=== PATIENT | male | born 1990 | race Caucasian/White ===

== ENCOUNTER 2021-05-10 08:37 | Emergency (ER) | payer OTHER, SELFPAY ==
[2021-05-10 08:43] VITALS: BP 134/85; PULSE 72; RESP 17; TEMP 36.7; O2SAT 99; BMI 31.2
--- NOTE | 2021-05-10 09:16 | ED.VIS.BACK ---
HPI History of Present Illness Chief Complaint: Back Narrative Narrative: 30-year-old male presenting with back pain. He states that last night he was walking and stepped in a hole or something and tried to catch himself from falling and he felt a twinge in the back on the right. He states he did not hit significantly then. Overnight he had some tightening it radiates down his gluteal region. He denies loss of bladder bowel control. He denies saddle anesthesia. He denies any direct trauma. He is able to ambulate but states his back feels tight. He has no history of back problems. PFSH PFS Medical History no medical history Home Medications prednisone 50 mg PO DAILY 4 Days #20 tab 05/10/21 [Rx Last Taken Unknown] tizanidine [Zanaflex] 4 mg PO Q8H PRN #14 cap 05/10/21 [Rx Last Taken Unknown] Allergy/AdvReac Type Severity Reaction Status Date / Time No Known Allergies Allergy Verified 05/10/21 08:39 Surgical History no surgical history Social History Smoking Status: Current every day smoker tobacco type: cigarettes ROS ROS ED Constitutional Constitutional ED: Denies chills or fever(s) Eyes Eyes: Denies blurry vision or diplopia ENT ENT ED: Denies rhinorrhea or sore throat Cardiovascular Cardiovascular: Denies chest pain or palpitations Respiratory/Chest Respiratory/Chest: Denies dyspnea or sputum Gastrointestinal Gastrointestinal: Denies abdominal pain, nausea or vomiting Genitourinary Genitourinary ED: Denies dysuria or hematuria Musculoskeletal Musculoskeletal: Reports back pain Integumentary Denies abscess or rash Neurologic Neurologic: Denies headache(s), paresthesias or weakness Psychiatric Psychiatric: Denies anxiety or depression EXAM Physical Exam Const Vital Signs: 05/10/21 08:43 Temperature 98.1 F Temperature Source Temporal Pulse Rate 72 Respiratory Rate 17 Blood Pressure 134/85 H Blood Pressure Mean 101 Pulse Ox 99 Oxygen Delivery Method Room Air Positive well nourished General Appearance ED: NAD; Negative for pallor HEENT Reports moist mucous membranes Negative for trauma Eyes PERRL and EOMs intact bilaterally Resp normal respiratory effort and clear to auscultation bilaterally Cardio regular rate and regular rhythm Back/Spine Back/Spine Narrative: Tenderness palpation right lumbar paraspinal musculature. No midline spinal tenderness, deformity, step-off. Neuro oriented x3 Sensorium / Orientation: alert Psych mental status grossly normal Skin General Skin Exam: Negative for jaundice or pallor MDM MDM MDM Narrative Medical decision making narrative: Patient presenting with lumbar strain. Given prednisone and Norflex in the ED. He was given a prescription for prednisone and Zanaflex. He is given instructions on stretching, icing. He is given return precautions. Impression: 1. Lumbar strain Discharge Plan Triage Chief Complaint: Back ED Provider: Jaden Lassiter Dx/Rx/DC Orders Instructions: ED Back Spasm, No Trauma Prescriptions: New prednisone 10 mg tablet 50 mg PO DAILY 4 Days Qty: 20 RF: 0 tizanidine [Zanaflex] 4 mg capsule 4 mg PO Q8H PRN (Reason: muscle spasticity) Qty: 14 RF: 0 Primary Care Provider: Lucy Joseph Referrals: Nicole Trevino MD [STAFF PHYSICIAN] - As Needed Town Doctor,Out of [NON-STAFF] - Disposition Disposition: Home, Self Care
[2021-05-10] MEDS: predniSONE 20 MG Tablet 60 MG PO (09:20)
[2021-05-10] MEDS: Orphenadrine 100 MG Tablet PO (09:21)
== END 2021-05-10 09:25 | disposition home or self-care (01) ==
LOC: ED 09:15
PROVIDERS: Emergency Provider Student in an Organized Health Care Education/Training Program; Visit Provider Student in an Organized Health Care Education/Training Program
DX: S39.012A Strain of muscle, fascia and tendon of lower back, initial encounter (principal); F17.210 Nicotine dependence, cigarettes, uncomplicated; X50.1XXA Overexertion from prolonged static or awkward postures, initial encounter
CPT/HCPCS: 99283

== ENCOUNTER 2024-03-06 04:37 | Emergency (ER) | payer BC, SELFPAY ==
[2024-03-06 04:41] VITALS: BP 135/80; PULSE 88; RESP 16; TEMP 36.6; O2SAT 100; BMI 30.4
--- NOTE | 2024-03-06 05:26 | EKG12_ITS ---
Test Reason : DYSRHYTHMIA Blood Pressure : */* mmHG Vent. Rate : 82 BPM Atrial Rate : 82 BPM P-R Int : 146 ms QRS Dur : 84 ms QT Int : 338 ms P-R-T Axes : 32 -1 36 degrees QTcB Int : 394 ms Normal sinus rhythm Normal ECG Confirmed by FERNANDO BAUTISTA, OMKAR ([id number]), health editor DARRYL CHAVEZ ([id number]) on 03/07/2024 10:52:45 AM Referred By: Confirmed By: OMKAR KING MD
--- NOTE | 2024-03-06 05:50 | RAD_ITS ---
INDICATION: cough EXAMINATION/TECHNIQUE: X-RAY - XR Chest 2 Views COMPARISON: No relevant prior comparison study available FINDINGS: LINES/DEVICES: None. LUNGS: No consolidation. No pneumothorax. MEDIASTINUM: Unremarkable. CARDIAC SILHOUETTE: Not enlarged. BONES AND SOFT TISSUES: No acute abnormalities. RAD/Chest PA and Lateral IMPRESSION: No evidence of active intrathoracic disease. Electronically Signed: Violeta Valdez MD at 6:57 EST ,
[2024-03-06 06:02] VITALS: BP 122/78; BP 132/69; BP 132/83; PULSE 106; PULSE 81; PULSE 91
[2024-03-06 06:08] LABS: Absolute Lymphocyte Count 1.14 X10^3/uL (0.83-4.51); Absolute Neutrophil Count 9.1 X10^3/uL (2.0-7.7); Basophil# 0.05 X10^3/uL; Basophil% 0.4 % (0-1); Eosinophil# 0.22 X10^3/uL; Eosinophils% 1.8 % (0-5); Hematocrit 45.8 % (40-54); Hemoglobin 15.5 g/dL (13.0-16.5); Lymphocyte # 1.14 X10^3/ul (0.83-4.51); Lymphocyte % 9.3 % (19-41); Mean Corp Hgb Conc 33.8 g/dL (32-36); Mean Corpuscular Volume 85.6 fL (80-94); Mean Platelet Vol. 9.8 fl (6.2-12.0); Monocyte% 13.1 % (0-10); NRBC Flagged by Analyzer 0 % (0-5); Neutrophil # 9.14 X10^3/uL (2.7-7.7); Neutrophil % 74.9 % (47-70); POSITIVE DIFFERENTIAL YES; Platelet Count 234 K/mm3 (150-450); RBC Distribution Width CV 12.4 % (11.6-14.6); RBC Distribution Width SD 38.7 fl (35.1-43.9); Red Blood Count 5.35 M/mm3 (4.6-6.2); White Blood Count 12.2 K/mm3 (4.4-11.0)
[2024-03-06] MEDS: 0.9% Normal Saline (1000mL) 1,000 ML 999 ML IV (06:10)
[2024-03-06 06:15] LABS: Differential Indicated SCAN CRITERIA MET
[2024-03-06 06:31] LABS: Anion Gap 2 (5-15); BUN 13 mg/dL (7-18); Calcium,Total 8.8 mg/dL (8.5-10.1); Chloride 105 mmol/L (98-107); EST Glomerular Filtration Rate 91 mL/min (>60); Est Glom Filt Rate - Afr Amer 110 mL/min (>60); Estimated Creatinine Clearance 114.92 ml/min; Glucose 106 mg/dL (74-106); Potassium 3.7 mmol/L (3.5-5.1); Sodium Level 137 mmol/L (136-145)
[2024-03-06 06:38] VITALS: BP 128/73; PULSE 79; RESP 16; TEMP 36.6; O2SAT 100
--- NOTE | 2024-03-06 07:10 | EX.ED.DYSGE1 ---
HPI History of Present Illness Chief Complaint: Syncope Informant: patient and spouse/S.O. Narrative Narrative: Patient is a 33-year-old male with no significant past medical history. He states his entire household has been sick with congestion cough and drain. He states that this evening his child was coughing and he woke up. He states he was walking to the kitchen when he began to feel lightheaded and then had a syncopal event. He struck his head as he fell to the ground. He denies any history of bleeding disorder or blood thinner use. He states that he does not remember feeling palpitations or heart racing prior to the event. He states that he has not passed out in the past but with his recent illness and now the syncopal event this evening he presents for evaluation [facility] Medical History no medical history no medical history Home Medications ?Medication ?Instructions ?Recorded ?Last Taken ?Type azelastine 137 mcg (0.1 %) nasal 2 spray intranasal BID #30 mL 03/06/24 Unknown Rx spray dextroamphetamine-amphetamine ER 1 cap PO DAILY 03/06/24 Unknown History 20 mg 24hr capsule,extend release prednisone 20 mg tablet 40 mg (2 x 20 mg) PO DAILY 5 days 03/06/24 Unknown Rx #10 tabs Allergy/AdvReac Type Severity Reaction Status Date / Time No Known Allergies Allergy Verified 05/10/21 08:39 Surgical History no surgical history Social History Smoking Status: Current every day smoker tobacco type: cigarettes ROS ROS ED Constitutional Constitutional ED: Denies chills or fever(s) Eyes Eyes: Denies blurry vision or change in vision ENT ENT ED: Reports rhinorrhea and sore throat Cardiovascular Cardiovascular: Reports other Details: Positive syncope ; Denies chest pain, palpitations or racing heartbeat Respiratory/Chest Respiratory/Chest: Reports cough; Denies dyspnea Gastrointestinal Gastrointestinal: Denies abdominal pain, diarrhea, nausea or vomiting Genitourinary Genitourinary ED: Denies dysuria Musculoskeletal Musculoskeletal: Reports myalgias Integumentary Reports Abrasions and other Details: Positive abrasion to the forehead Neurologic Neurologic: Denies headache(s), paresthesias or weakness Hematologic/Lymphatic Hematologic/Lymphatic: Denies easy bleeding or easy bruising Allergic/Immunologic Allergic/Immunologic ED: Denies mouth swelling or tongue swelling EXAM Physical Exam Const Vital Signs: 03/06/24 04:41 03/06/24 04:44 03/06/24 06:02 Temperature 98 F Temperature Source Oral Pulse Rate 88 Pulse Rate [Lying] 81 Pulse Rate [Sitting (for 1 minute prior to obtaining)] 91 Pulse Rate [Standing (for 1 minute prior to obtaining)] 106 H Respiratory Rate 16 Respiratory Effort Normal Respiratory Pattern Normal Blood Pressure 135/80 H Blood Pressure [Lying] 132/69 H Blood Pressure [Sitting (for 1 minute prior to obtaining)] 132/83 H Blood Pressure [Standing (for 1 minute prior to obtaining)] 122/78 H Blood Pressure Mean 98 Blood Pressure Mean [Lying] 90 Blood Pressure Mean [Sitting (for 1 minute prior to obtaining)] 99 Blood Pressure Mean [Standing (for 1 minute prior to obtaining)] 92 Pulse Ox 100 Oxygen Delivery Method Room Air Positive well nourished and well developed General Appearance ED: well developed; Negative for pallor HEENT HEENT Narrative: Patient has a 1 x 2 cm hematoma along the right frontal portion of the forehead. There is a dermal layer abrasion in the center of this consistent with head injury. Otherwise no signs of depressed or basilar skull fracture Nasal mucosa is hyperemic and boggy with large inferior nasal turbinate Posterior pharynx displays cobblestoning consistent with sinus drainage without secondary findings to suggest infection or airway edema or compromise Mucous membranes are mildly dry and tacky Eyes PERRL and EOMs intact bilaterally General Eye ED: Negative for scleral icterus Neck supple Neck Narrative: No bony deformity or step-off of the cervical spine no midline tenderness to palpation Resp normal respiratory effort and clear to auscultation bilaterally Cardio regular rate and regular rhythm GI normal to inspection, nondistended, normoactive bowel sounds, non-tender, non-distended and no masses Auscultation: normoactive bowel sounds Palpation: soft Back/Spine Back/Spine Narrative: No bony deformity or step-off of the thoracic or lumbar spine no midline tenderness to palpation Extremity normal to inspection Neuro oriented x3, CN's II-XII intact bilaterally and no sensory deficits noted Neuro Narrative: Cranial nerves II through XII are grossly intact there are no focal neurologic deficits No pronator drift no dysmetria no truncal ataxia NIH stroke scale score of 0 GCS of 15 Sensorium / Orientation: alert Motor Exam: strength 5/5 throughout Psych mental status grossly normal Skin no rashes or lesions noted and No skin turgor normal Skin Narrative: Skin turgor is slightly increased General Skin Exam: Negative for jaundice or pallor MDM MDM MDM Narrative Medical decision making narrative: Patient presented to the ER awake and alert with stable vitals and normal neurologic exam. History is most consistent with upper respiratory tract infection leading to mild dehydration and orthostatic syncope. We discussed potential head CT as he did strike his head and had a syncopal event. However based on his young age and the fact he hit the frontal bone and he does not have a history of bleeding disorder nor take blood thinners concern for underlying traumatic subarachnoid or subdural hemorrhage is low and we do not feel the need for head CT. Also as patient does not have midline pain on palpation and can move his neck in all directions concern for cervical compression fracture is low and therefore patient did not want to undergo a CT of the neck. With the syncopal event there is concern this could be related to acute kidney injury versus electrolyte abnormality or cardiac dysrhythmia. Basic blood work was obtained and reveals no acute finding. EKG revealed sinus rhythm going against ACS or cardiac dysrhythmia. Orthostatic vitals were technically negative but patient did report feeling lightheaded with standing and therefore he was given a liter of fluid. Following this he had resolution of his lightheaded/dizzy sensation. Therefore this time as overall workup is negative and patient is feeling better after hydration he is otherwise safe for discharge History & Record Review Discussion w/independent historian: EMS personnel, Patient and Significant other Lab Data Attestation: I reviewed the patient's lab results. Labs: Laboratory Results - last 24 hr 03/06/24 05:44 WBC 12.2 H RBC 5.35 Hgb 15.5 Hct 45.8 MCV 85.6 MCH 29.0 MCHC 33.8 RDW Std Deviation 38.7 RDW Coeff of Olya 12.4 Plt Count 234 MPV 9.8 Immature Gran % (Auto) 0.500 Neut % (Auto) 74.9 H Lymph % (Auto) 9.3 L [place] % (Auto) 13.1 H Eos % (Auto) 1.8 Baso % (Auto) 0.4 Absolute Neuts (auto) 9.1 H Absolute Lymphs (auto) 1.14 Nucleated RBC % 0 Sodium 137 Potassium 3.7 Chloride 105 Carbon Dioxide 30.0 Anion Gap 2 L BUN 13 Creatinine 1.00 Estim Creat Clear Calc 114.92 Est GFR (MDRD) Af Amer 110 Est GFR (MDRD) Non-Af 91 BUN/Creatinine Ratio 13.0 Glucose 106 Calcium 8.8 Magnesium 2.0 Radiography Diagnostic Testing: Clinical Impression(s) from Imaging Studies Chest X-Ray 03/06/24 05:50 IMPRESSION: No evidence of active intrathoracic disease. Electronically Signed: Violeta Valdez MD at 6:57 EST , Chest x-ray as interpreted by the emergency medicine physician reveals no acute infiltrate pneumothorax or pleural effusion or widening of the mediastinum Discharge Plan Triage Chief Complaint: Syncope ED Provider: Popeye Coon Dx/Rx/DC Orders Clinical Impression: Orthostatic syncope, Viral upper respiratory tract infection with cough Instructions: Dizziness Fainting Causes, ED URI, Viral, No Abx (Adult) Prescriptions: New azelastine 137 mcg (0.1 %) spray,non-aerosol 2 spray intranasal BID Qty: 30 0RF Rx Instructions: administer into each nostril prednisone 20 mg tablet 40 mg PO DAILY 5 Days Qty: 10 0RF No Action dextroamphetamine-amphetamine 20 mg capsule,extended release 24hr 1 cap PO DAILY Primary Care Provider: Lucy Joseph Referrals: Lucy Joseph MD [Primary Care Provider] - Activity Restrictions/Additional Instructions: Please keep yourself well-hydrated and return to the ER should you have any further concerns or worsening of symptoms Print Language: Faroese Disposition Disposition: Home, Self Care Discharge Date/Time: 03/06/24 08:04
[2024-03-06 07:51] VITALS: BP 124/71; PULSE 77; RESP 14; TEMP 36.6; O2SAT 99
[2024-03-06 08:10] LABS: Differential Comment SCANNED; Platelet Estimate ADEQUATE (ADEQ); Red Cell Morphology NORM C+C NORMAL (NORM C&C)
[2024-03-07 15:32] LABS: Pathologist Review Reviewed
== END 2024-03-06 08:04 | disposition home or self-care (01) ==
PROVIDERS: Emergency Provider Emergency Medicine; PCP Family Medicine; Visit Provider Emergency Medicine
DX: J06.9 Acute upper respiratory infection, unspecified (principal); R55 Syncope and collapse; R05.9 Cough, unspecified; F17.210 Nicotine dependence, cigarettes, uncomplicated
CPT/HCPCS: 71046; 80048; 83735; 85025; 93005; 96360; 99285